=== PATIENT | female | born 1970 | race Caucasian/White ===

== ENCOUNTER 2017-11-16 16:41 | Emergency (ER) | payer MEDICAID ==
[2017-11-16] MEDS ORDERED: ONDANSETRON 4 MG/2 ML VIAL IVP ONE (16:54)
[2017-11-16] MEDS ORDERED: FAMOTIDINE 20 MG in NS 100 ML IV ONE (16:54)
[2017-11-16] MEDS ORDERED: NS 1,000 ML IV ONE ×2 (16:54)
[2017-11-16] MEDS ORDERED: FAMOTIDINE 20 MG/2 ML SDV ONE (17:07)
[2017-11-16] MEDS ORDERED: FAMOTIDINE 20 MG/2 ML SDV IVP ONE (17:10)
--- NOTE | 2017-11-16 17:29 | EDPHY ---
H & P Time Seen by Provider: 11/16/17 17:06 HPI/ROS: HPI Nausea, vomiting and diarrhea. 47-year-old female by private vehicle. She presents to the emergency department with complaint of watery diarrhea, multiple episodes over the last 6 days. She has also had nausea with vomiting over the last 2 days. Vomit is described as nonbilious and nonbloody. No bloody diarrhea. No melenic stool. She denies any ill contacts. No foreign travel. No camping. She describes having crampy lower abdominal discomfort which comes on in waves. ROS: Constitutional: No fever, no chills. No weakness. Eyes: No discharge. No changes in vision. ENT: No sore throat. No nasal congestion or rhinorrhea. Respiratory: No cough. No shortness of breath. Cardiac: No chest pain, no palpitations. Gastrointestinal: As above. Genitourinary: No hematuria. No dysuria or increased frequency with urination. Musculoskeletal: No back pain. No neck pain. No myalgias or arthralgias. Skin: No rashes. Neurological: No headache. No focal weakness or altered sensation. Past medical history: Deafness, depression, migraine headache aches, tubal ligation, kidney infection, urinary tract infections, cholecystectomy, anxiety disorder, uterine ablation. She does not menstruate anymore. Social history: Here by herself. No alcohol. No smoking. Physical Exam: General Appearance: Alert, no distress. This patient is responding to questions appropriately and in full sentences. This patient appears well- hydrated and well-nourished. Eyes: Pupils equal and round no pallor or injection. No lid edema, erythema or injection. Respiratory: There are no retractions, lungs are clear to auscultation with good air movement bilaterally. Cardiovascular: Regular rate and rhythm. No murmur. Gastrointestinal: Abdomen is soft and nontender, no masses, bowel sounds normal. No focal tenderness at McBurney's point. No Daniel sign. Neurological: Motor sensory function is grossly intact. Cranial nerves are normal. Gait is normal. Skin: Warm and dry, no rashes. Musculoskeletal: Neck is supple and nontender. Extremities are symmetrical. All joints range without pain or impingement. Psychiatric: No agitation. No depression. Database: EKG: Imaging: Procedures: Emergency department course: Triage vital signs reviewed. She is mild hypertensive. She is mildly tachycardic. Afebrile. IV was placed. She was started on IV normal saline with 2 L to be given over the next 1-2 hours. She was given 4 mg of IV Zofran and 20 mg of IV Pepcid initially. 5:35 p.m., the patient had a small episode of vomiting. Nonbilious, nonbloody. She was given 6.25 mg of IV Phenergan. Blood work and urinalysis reviewed. Urinalysis was unremarkable. She is hypokalemic at 3.0. 6:25 p.m., patient re-evaluated. Resting comfortably at this time. Repeat abdominal exam she is soft, nontender nondistended. She is feeling better. No nausea. She has not had any further vomiting or episodes of diarrhea. She has had some intermittent lower abdominal cramping. She was given 15 mg of IV Toradol and 20 mg of Bentyl for this. She has no contraindications to NSAIDs. 7:30 p.m., patient re-evaluated. Resting comfortably at this time. She is taking oral fluids at this time. Repeat abdominal exam she is soft, nontender nondistended. She does feel comfortable going home. I will prescribe her Zofran. I will also prescribe her a potassium supplement that she can start taking tomorrow over the next few days. I have instructed her to follow up with her primary care physician for re-evaluation on Saturday or Saturday of this week. Return to emergency department precautions were reviewed with her. All of her questions were answered. She was discharged from the emergency department in good condition. Differential Diagnosis: The differential diagnosis on this patient includes but is not limited to food borne illness, viral gastroenteritis. Appendicitis, bowel obstruction, entero hemorrhagic E coli infection, other surgical etiology unlikely. This represents a partial list of diagnoses considered. These considerations are based on history, physical exam, past history, reassessment and diagnostic testing. Smoking Status: Never smoked Constitutional: Initial Vital Signs Temperature (C) 36.8 C 11/16/17 16:49 Heart Rate 107 H 11/16/17 16:49 Respiratory Rate 18 11/16/17 16:49 Blood Pressure 146/105 H 11/16/17 16:49 O2 Sat (%) 93 11/16/17 16:49 O2 Delivery Mode Room Air Allergies/Adverse Reactions: Penicillins Allergy (Unknown, Verified 11/16/17 16:52) Pt reports redness, rash clindamycin Allergy (Verified 11/16/17 16:52) Pt reports rash latex Allergy (Verified 11/16/17 16:52) Pt reports rash morphine Allergy (Verified 11/16/17 16:52) Pt unsure of rxn Home Medications: Medication Instructions Recorded Viibryd 06/03/16 traZODone 06/03/16 Ondansetron Odt [Zofran Odt 4 mg 4 mg PO Q4PRN PRN #10 tab 11/16/17 (*)] Potassium Cl [Klor-Con 20 meq (*)] 20 meq PO TID #10 tab 11/16/17 Medical Decision Making - Data Points Laboratory Results: 11/16/17 11/16/17 17:55 17:12 POC Sodium 140 mEq/L mEq/L (135-145) POC Potassium 3.0 mEq/L L mEq/L (3.3-5.0) POC Chloride 98.0 mEq/L mEq/L (97-110) POC Total CO2 28 mEq/L mEq/L (22-31) POC BUN 7 mg/dL mg/dL (7-23) POC Creatinine 0.9 mg/dL mg/dL (0.6-1.0) POC Glucose 126 mg/dL H mg/dL (70-100) POC Calcium 9.6 mg/dL mg/dL (8.5-10.4) Urine Color YELLOW Urine Appearance CLEAR Urine pH 6.0 (5.0-7.5) Ur Specific [place] 1.014 (1.002-1.030) Urine Protein NEGATIVE (NEGATIVE) Urine Ketones TRACE H (NEGATIVE) Urine Blood NEGATIVE (NEGATIVE) Urine Nitrate NEGATIVE (NEGATIVE) Urine Bilirubin NEGATIVE (NEGATIVE) Urine Urobilinogen NEGATIVE EU EU (0.2-1.0) Ur Leukocyte Esterase NEGATIVE (NEGATIVE) Urine RBC 1-3 /hpf /hpf (0-3) Urine WBC 3-5 /hpf H /hpf (0-3) Ur Epithelial Cells NONE SEEN /lpf /lpf (NONE-1+) Urine Mucus TRACE /lpf /lpf (NONE-1+) Urine Glucose NEGATIVE (NEGATIVE) Medications Given: Discontinued Medications Dicyclomine HCl (Bentyl) 20 mg PO EDNOW ONE Stop: 11/16/17 19:14 Last Admin: 11/16/17 19:18 Dose: 20 mg Famotidine (Pepcid) 20 mg IVP EDNOW ONE Stop: 11/16/17 17:11 Last Admin: 11/16/17 17:12 Dose: 20 mg Sodium Chloride (Ns) 1,000 mls @ 0 mls/hr IV EDNOW ONE; Wide Open PRN Reason: Protocol Stop: 11/16/17 16:55 Last Admin: 11/16/17 17:11 Dose: 1,000 mls Sodium Chloride (Ns) 1,000 mls @ 0 mls/hr IV EDNOW ONE; Wide Open PRN Reason: Protocol Stop: 11/16/17 16:55 Last Admin: 11/16/17 17:11 Dose: 1,000 mls Famotidine 20 mg/ Sodium (Chloride) 102 mls @ 408 mls/hr IV EDNOW ONE Stop: 11/16/17 17:08 Last Admin: 11/16/17 17:10 Dose: Not Given Ketorolac Tromethamine (Toradol) 15 mg IVP EDNOW ONE Stop: 11/16/17 18:43 Last Admin: 11/16/17 18:48 Dose: 15 mg Ondansetron HCl (Zofran) 4 mg IVP EDNOW ONE Stop: 11/16/17 16:55 Last Admin: 11/16/17 17:12 Dose: 4 mg Ondansetron HCl (Zofran Odt 4 Mg Prepack#2) 1 btl TAKEHOME EDNOW ONE Stop: 11/16/17 19:42 Last Admin: 11/16/17 19:47 Dose: 1 btl Promethazine HCl (Phenergan) 6.25 mg IVP EDNOW ONE Stop: 11/16/17 17:37 Last Admin: 11/16/17 17:48 Dose: 6.25 mg Point of Care Test Results: Chemistry 11/16/17 17:12 POC Sodium 140 mEq/L mEq/L (135-145) POC Potassium 3.0 mEq/L L mEq/L (3.3-5.0) POC Chloride 98.0 mEq/L mEq/L (97-110) POC Total CO2 28 mEq/L mEq/L (22-31) POC BUN 7 mg/dL mg/dL (7-23) POC Creatinine 0.9 mg/dL mg/dL (0.6-1.0) POC Glucose 126 mg/dL H mg/dL (70-100) POC Calcium 9.6 mg/dL mg/dL (8.5-10.4) Urine Collection Date 11/16/17 Collection Time 17:55 HCG Results Negative Urine Dip Collection Date 11/16/17 Collection Time 17:55 Specific [place] (1.002-1.030) 1.020 PH (5.0-7.5) 6.0 Leukocytes (Negative) Negative Nitrites (Negative) Negative Protein (Negative) Negative Glucose (Negative) Negative Ketones (Negative) 1+ Urobilnogen (0.2-1.0 EU) 0.2 Bilirubin (Negative) Negative Blood (Negative) Negative Departure - Departure Disposition: Home, Routine, Self-Care Clinical Impression: Vomiting and diarrhea, Hypokalemia Condition: Good Instructions: Ondansetron (By mouth), Gastroenteritis (ED) Additional Instructions: Read and follow provided instructions. Follow-up with your primary care physician in 1-2 days for re-evaluation as discussed. Take medication as prescribed for nausea. Keep yourself well hydrated. A good fluid to drink is Gatorade mixed with water in a 1-1 dilution over ice. Take potassium supplement as prescribed for 2-3 days. Have your potassium level repeated by your primary care physician when you are re-evaluated on follow-up on Saturday or Saturday. Return to the emergency department for worsening symptoms, vomiting and inability to keep fluids down despite medication for nausea, worsening abdominal pain, fever, bloody stool or other serious concerns. Referrals: Debbie Bhandari MD [Primary Care Provider] - As per Instructions Prescriptions: Ondansetron Odt [Zofran Odt 4 mg (*)] 4 mg PO Q4PRN PRN #10 tab PRN Reason: For Nausea & Vomiting Potassium Cl [Klor-Con 20 meq (*)] 20 meq PO TID #10 tab
[2017-11-16] MEDS ORDERED: PROMETHAZINE HCL 25 MG/ML INJ IVP ONE (17:36)
[2017-11-16] MEDS ORDERED: KETOROLAC 15 MG/1 ML SDV IVP ONE (18:42)
[2017-11-16] MEDS ORDERED: DICYCLOMINE 10 MG CAP PO ONE (19:13)
[2017-11-16 19:22] VITALS: BP 129/87
[2017-11-16] MEDS ORDERED: ONDANSETRON 4MG PREPACK#2 BTL TAKEHOME ONE (19:41)
== END 2017-11-16 19:51 | disposition home or self-care (01) ==
LOC: CED 16:41
DX: R19.7 Diarrhea, unspecified (principal); R11.10 Vomiting, unspecified; E87.6 Hypokalemia; E86.9 Volume depletion, unspecified; Z91.040 Latex allergy status
CPT/HCPCS: 80048-PO; 96374; J1885; J2405; J2550

== ENCOUNTER 2017-11-22 12:02 | Emergency (ER) | payer MEDICAID ==
--- NOTE | 2017-11-22 13:01 | EDPHY ---
H & P Stated Complaint: sent by for dizziness, diarrhea Time Seen by Provider: 11/22/17 12:07 HPI/ROS: CHIEF COMPLAINT: Vomiting, diarrhea and near syncope History by patient HISTORY OF PRESENT ILLNESS: 47-year-old woman was seen 2 weeks ago for vomiting and diarrhea in the emergency department and has continued to have persistent symptoms. She went to see her primary care physician today and was feeling near syncopal, there has been no true syncope, so they referred her to the emergency department for further evaluation. Patient states that she is having ongoing vomiting and watery sometimes bloody diarrhea since the onset 2 weeks ago. She says every time she tries to eat or drink anything it comes back up. Patient has been taking Zofran at home with minimal relief. She is drinking Coca-Cola during the interview. Patient notes that she was on antibiotics for tooth infection approximately 1 month ago. REVIEW OF SYSTEMS: As in HPI, and all other systems reviewed and are negative Source: Patient - Personal History Tetanus Vaccine Date: within 10 years - Medical/Surgical History Hx Asthma: No Hx Chronic Respiratory Disease: No Hx Diabetes: No Hx Cardiac Disease: No Hx Renal Disease: No Hx Cirrhosis: No Hx Alcoholism: No Hx HIV/AIDS: No Hx Splenectomy or Spleen Trauma: No Other PMH: DEAFNESS,DEPRESSION,migraines,tubal ligation,kidney infection, cholecystectomy, anxiety disorder, depression, uterine ablation- no more menstrual cycle - Social History Smoking Status: Never smoked - Physical Exam Exam: General Appearance: Alert, nontoxic-appearing. Head: normocephalic, atraumatic Eyes: Pupils equal and round, reactive to light, no pallor or injection. Mouth: Mucous membranes moist. Respiratory: Normal, effort, lungs are clear to auscultation. No wheezes, rales or rhonchi. Cardiovascular: Regular rate and rhythm. S1, S2, no murmurs, gallops or rubs appreciated Gastrointestinal: Abdomen is soft and nontender, no masses, bowel sounds normal. Back: No CVA tenderness, no bony tenderness Neurological: Awake, alert and oriented x 3, no pronator drift, normal gait, no pronator drift Skin: Warm and dry, no rashes. Musculoskeletal: No deformities or tenderness. Extremities: full range of motion, no edema, DP2+ bilat Psychiatric: Patient has normal affect, there is no agitation. Constitutional: Initial Vital Signs Temperature (C) 37.2 C 11/22/17 12:10 Heart Rate 89 11/22/17 12:10 Respiratory Rate 16 11/22/17 12:10 Blood Pressure 116/79 11/22/17 12:10 O2 Sat (%) 94 11/22/17 12:10 O2 Delivery Mode Room Air Allergies/Adverse Reactions: Penicillins Allergy (Unknown, Verified 11/22/17 12:24) Pt reports redness, rash clindamycin Allergy (Verified 11/22/17 12:24) Pt reports rash latex Allergy (Verified 11/22/17 12:24) Pt reports rash morphine Allergy (Verified 11/22/17 12:24) Pt unsure of rxn Home Medications: Medication Instructions Recorded Viibryd 06/03/16 traZODone 06/03/16 Ondansetron Odt [Zofran Odt 4 mg 4 mg PO Q4PRN PRN #10 tab 11/16/17 (*)] Potassium Cl [Klor-Con 20 meq (*)] 20 meq PO TID #10 tab 11/16/17 Metoclopramide HCl [Metoclopramide 10 mg PO TID #12 tab.rapdis 11/22/17 HCl Odt] Medical Decision Making ED Course/Re-evaluation: 47-year-old woman with recent antibiotic course for tooth infection now with persistent 2 weeks of watery, sometimes bloody diarrhea and vomiting and clinical dehydration. I reviewed records from prior visit. Patient was noted to be hypokalemic at that time. In the ED today, Patient was given IV fluids, IV Reglan, and electrolytes were checked. She was feeling better after the Reglan and tolerating oral fluids. Potassium was noted to be low again at 3.2. She was given oral potassium replacement. Patient states she has been unable to take the potassium chloride pills that she was sent home with last time because the pills are so big and upset her stomach. I recommended she try bananas instead. Patient was given a stool collection kit by her PCP. We obtained a sample in the ED that was sent for c diff. Since the Zofran has not been helping the patient will switch her to Reglan at home. We discussed how Zofran can interact with her Viibryd and the metoclopramide can to but, it has less was significant serotonin interaction with her Viibyrd than the Zofran. I recommend the patient start probiotics. I am recommending follow up with GI unless her symptoms resolve over the weekend. - Data Points Medications Given: Discontinued Medications Sodium Chloride (Ns) 1,000 mls @ 0 mls/hr IV ONCE ONE PRN Reason: Wide Open Stop: 11/22/17 13:22 Last Admin: 11/22/17 13:28 Dose: 1,000 mls Metoclopramide HCl (Reglan Injection) 10 mg IVP EDNOW ONE Stop: 11/22/17 13:22 Last Admin: 11/22/17 13:28 Dose: 10 mg Potassium Chloride (Potassium Chloride Oral Liquid) 40 meq PO EDNOW ONE Stop: 11/22/17 13:54 Last Admin: 11/22/17 14:21 Dose: 40 meq Point of Care Test Results: Chemistry 11/22/17 13:19 POC Sodium 138 mEq/L mEq/L (135-145) POC Potassium 3.1 mEq/L L mEq/L (3.3-5.0) POC Chloride 100.0 mEq/L mEq/L (97-110) POC Total CO2 27 mEq/L mEq/L (22-31) POC BUN 5 mg/dL L mg/dL (7-23) POC Creatinine 0.8 mg/dL mg/dL (0.6-1.0) POC Glucose 116 mg/dL H mg/dL (70-100) POC Calcium 9.4 mg/dL mg/dL (8.5-10.4) Departure - Departure Disposition: Home, Routine, Self-Care Clinical Impression: Diarrhea, Hypokalemia due to loss of potassium Condition: Good Instructions: Hypokalemia (ED), Acute Diarrhea (ED) Additional Instructions: You were seen by Dr. Tiffani Lewis today. Your potassium was low again today. Please try to eat a banana or 2 a day for the next few days until the diarrhea has resolved. Results of the stool test will come back and the next 24-48 hr, please follow up with her primary care physician for these results. We will switch your Zofran (ondansetron) to Reglan (metoclopramide) for nausea and vomiting at home. Try also oral probiotics and eating yogurt. Please follow-up also with Gastroenterology, Dr. Carroll, if your symptoms persist. Return for any worsening or new concerns. Referrals: Teodora Moreau MD [Primary Care Provider] - As per Instructions Niraj Carroll MD, FACG [Medical Doctor] - As per Instructions Prescriptions: Metoclopramide HCl [Metoclopramide HCl Odt] 10 mg PO TID #12 tab.rapdis
[2017-11-22] MEDS ORDERED: NS 1,000 ML IV ONE (13:21)
[2017-11-22] MEDS ORDERED: METOCLOPRAMIDE 10 MG/2 ML VIAL IVP ONE (13:21)
[2017-11-22] MEDS ORDERED: POTASSIUM CL 20 MEQ/15 ML UDCUP PO ONE (13:53)
[2017-11-22 14:47] VITALS: BP 135/82
== END 2017-11-22 14:50 | disposition home or self-care (01) ==
LOC: CED 12:02
DX: R19.7 Diarrhea, unspecified (principal); E87.6 Hypokalemia; Z91.040 Latex allergy status
CPT/HCPCS: 80048-PO; 96374; J2765